=== PATIENT | female | born 1955 ===

== ENCOUNTER 2023-12-22 05:27 | Day surgery (SDC) | payer OTHER ==
[2023-12-22] MEDS ORDERED: MIDAZOLAM HCL 2 MG/2 ML VIAL IV ONE (10:15)
[2023-12-22] MEDS ORDERED: fentaNYL CITRATE 50 MCG/ML AMPUL IV PUSH ONE (10:15)
[2023-12-22] MEDS ORDERED: DIPHENHYDRAMINE HCL 50 MG/ML VIAL 1ML IV ONE (10:15)
== END 2023-12-22 11:40 | disposition home or self-care (01) ==
LOC: AMB-ENDOS 05:27
PROVIDERS: ATTEND Colon & Rectal Surgery
DX: K63.5 Polyp of colon (principal); D12.4 Benign neoplasm of descending colon; D12.3 Benign neoplasm of transverse colon; K64.2 Third degree hemorrhoids; Z88.1 Allergy status to other antibiotic agents; Z88.6 Allergy status to analgesic agent